=== PATIENT | female | born 1955 | race Caucasian/White ===

== ENCOUNTER → 2017-02-04 | Outpatient (CLI) | payer BC ==
[2014-11-24 10:38] VITALS: BP 126/74
[~2017-02-04] MED LIST: ASPI-482 PO; CELE200C PO; CYCL-331 PO; ESOM40CA PO; HYDR-2758 PO; OXYB5TAB7 PO; TRAM50TA PO
--- NOTE | 2017-02-04 10:43 | RAD ---
DATE: 02/04/2017 EXAM: MAMMO BABRARA SCREENING BILATERAL HISTORY: Routine screening COMPARISON: 01/24/2016 This study was interpreted with the benefit of Computerized Aided Detection (CAD). The breast parenchyma shows scattered fibroglandular densities. Breast parenchyma level B. FINDINGS: 2-D and 3-D tomosynthesis imaging was performed in CC and MLO projections. There is a 13 mm smooth nodule related to the skin along the medial aspect of the left breast. This has increased slightly in size since 01/24/2016. The patient reports that this is a known sebaceous cyst which has previously drained. There is a tiny 4 mm lobulated nodule in the lateral aspect of the right breast which is unchanged. This is probably an intramammary lymph node or fibroadenoma. No other new or enlarging breast densities are seen. There are scattered benign type calcifications. No suspicious microcalcifications have developed. IMPRESSION: 1. An enlarging skin related nodule in the medial aspect of the left breast reportedly represents a known sebaceous cyst. Clinical correlation is suggested. 2. Otherwise stable mammograms without evidence of malignancy. BI-RADS CATEGORY: 2 BENIGN FINDING(S) RECOMMENDED FOLLOW-UP: 12M 12 MONTH FOLLOW-UP PQRS compliance statement: Patient information was entered into a reminder system with a target due date for the next mammogram. Mammography is a sensitive method for finding small breast cancers, but it does not detect them all and is not a substitute for careful clinical examination. A negative mammogram does not negate a clinically suspicious finding and should not result in delay in biopsying a clinically suspicious abnormality. "Our facility is accredited by the [employer] Mammography Program."
== END | disposition home or self-care (01) ==
LOC: MAMMO 09:37
PROVIDERS: ATTEND Family Medicine
DX: Z12.31 Encounter for screening mammogram for malignant neoplasm of breast (principal); N63 Unspecified lump in breast; L72.3 Sebaceous cyst
CPT/HCPCS: 77063; G0202; 77067

== ENCOUNTER → 2017-04-21 | Outpatient (CLI) | payer BC ==
[2014-11-24 10:38] VITALS: BP 126/74
[~2017-04-21] MED LIST changes: +IOHEXOL 300 MG/ML 75 ML VIAL. IV ONE
--- NOTE | 2017-04-21 13:18 | RAD ---
Indication shortness of air. Axial images through the chest were obtained. The examination was tailored for the detection of pulmonary embolus. No similar imaging is available. Approximately 75 cc of Omnipaque 300 was administered intravenously. MIP images were generated and reviewed. Imaging through the upper abdomen is unremarkable. The thoracic aorta and mediastinum appear unremarkable. The study is negative for pulmonary embolus. There is no acute parenchymal infiltrate. There is no dominant soft tissue mass. There is a peripheral 2 mm nodule in the left upper lobe, image 43 series 4. Follow-up imaging along the lines of the Fleischner criteria should be considered. IMPRESSION: No acute finding in the chest. Negative study for pulmonary embolus. Small, approximately 2 mm, pulmonary nodule in the left upper lobe. Follow-up imaging along the lines at the Fleischner criteria should be considered. Nodules detected incidentally at non-screening CT Nodule size (mm) less than or equal to 4 Low Risk patients- no follow-up needed High Risk patients- follow-up at 12 months and if no change, no further imaging needed. Nodule size > 4-6 mm Low risk patients- follow- up at 12 months and if no change, no further imaging needed High risk patients- initial follow-up CT at 6-12 months and then at 18-24 months if no change. Nodule Size > 6-8 mm Low risk patients- initial follow-up CT at 6-12 months and then at 18-24 months if no change. High risk patients- initial follow- up CT at 3-6 months and then at 9-12 months if no change, Nodule Size >8 mm Either low or high risk patients: Follow-up CT at around 3, 9 and [address], PET, and/or biopsy Note: newly detected indeterminate nodule in person 35 years of age or older. Low risk patients- minimal or absent history of smoking and/or other known risk factors. High risk patients- history of smoking or of other known risk factors. PQRS Compliance Statement: One or more of the following individualized dose reduction techniques were utilized for this examination: 1. Automated exposure control 2. Adjustment of the mA and/or kV according to patient size 3. Use of iterative reconstruction technique
== END | disposition home or self-care (01) ==
LOC: CT 12:43
PROVIDERS: ATTEND Nurse Practitioner Family
DX: R91.1 Solitary pulmonary nodule (principal); R06.00 Dyspnea, unspecified; R06.02 Shortness of breath; R05 Cough; J44.9 Chronic obstructive pulmonary disease, unspecified; J45.909 Unspecified asthma, uncomplicated; I10 Essential (primary) hypertension; F17.200 Nicotine dependence, unspecified, uncomplicated
CPT/HCPCS: 71275; Q9967

== ENCOUNTER → 2019-03-28 | Outpatient (CLI) | payer BC ==
[~2019-03-28] MED LIST changes: +HYDR-2155 PO; -HYDR-2758 PO; -IOHEXOL 300 MG/ML 75 ML VIAL. IV ONE
[2019-03-28 08:52] VITALS: BP 153/84
== END | disposition home or self-care (01) ==
LOC: SURG 08:37
PROVIDERS: ATTEND Anesthesiology
DX: M54.16 Radiculopathy, lumbar region (principal); J44.9 Chronic obstructive pulmonary disease, unspecified; G89.29 Other chronic pain; K21.9 Gastro-esophageal reflux disease without esophagitis; Z90.49 Acquired absence of other specified parts of digestive tract; Z96.652 Presence of left artificial knee joint
CPT/HCPCS: 99204